=== PATIENT | female | born 1995 | race Caucasian/White ===

== ENCOUNTER 2017-02-01 15:12 | Emergency (ER) | payer BC, OTHER ==
[~2017-02-01] VITALS: Ht 167.6 cm; Wt 55.2 kg
[~2017-02-01 15:12] MED LIST: AMPH25CA PO; OXYC-643 PO
[2017-02-01 15:16] VITALS: TEMP 36.6; Ht 167.6 cm; Wt 55.2 kg
[2017-02-01] MEDS ORDERED: ACETAMINOPHEN 500 MG TAB PO STA (15:29)
[2017-02-01] MEDS ORDERED: IBUPROFEN 600 MG TAB PO STA (15:29)
--- NOTE | 2017-02-01 16:26 | DIAGNOSTIC IMAGING REPORT ---
CT HEAD WITHOUT CONTRAST (CT) CLINICAL HISTORY: Head injury HEADACHE, BLURRY VISION. COMPARISON STUDY: 04/20/2015 TECHNIQUE: Axial CT of the brain is performed from the vertex to the skull base. IV contrast was not administered for this examination. CT DOSE: 700.35 mGycm FINDINGS: No intra or extra-axial mass lesions are visualized. There is no CT evidence of acute cortical infarction. There is no evidence of midline shift. There is no acute hemorrhage. No calvarial fractures are visualized. There is no evidence of pathologic ventricular dilatation. There is no evidence of acute sinusitis IMPRESSION: Normal noncontrast head CT. Electronically signed by: Josh Stone M.D. 02/01/2017 4:24 PM Dictated Date/Time: 02/01/2017 4:22 PM
[2017-02-01 17:02] VITALS: BP 114/77; PULSE 75; O2SAT 99
--- NOTE | 2017-02-01 17:48 | EMERGENCY ROOM VISIT NOTE ---
ED Visit Note First contact with patient: 15:24 CHIEF COMPLAINT: Head injury HISTORY OF PRESENT ILLNESS: This 21-year-old female patient presented to the emergency department after receiving a head injury yesterday at work. The patient states that she was bending down when she struck her head off a shelf. There was no brief loss of consciousness. There has been no vomiting. The patient complains of frontal head pain. The patient denies other symptoms. She has taken nothing for pain today, but did take Advil with mild improvement of symptoms yesterday. The patient rates the pain as 7/10 and dull. The patient denies bowel or bladder dysfunction. The patient denies any other injuries. REVIEW OF SYSTEMS: A review of systems was performed with positives and pertinent negatives listed in the history of present illness. All other systems were reviewed and are negative. ALLERGIES: Tramadol MEDICATIONS: No chronic medications PMH: Otherwise healthy SOCIAL HISTORY: Employed and lives locally PHYSICAL EXAM: Vital Signs: Reviewed Nurse's notes, vital signs stable. GENERAL : White female, in no acute distress, well-developed, well-nourished. NEURO: The patient is alert, oriented to person place and time, and coherent. Normal mini mental status exam. Negative Romberg and pronator drift. Cerebellar function intact. HEAD: Normocephalic atraumatic. EYES: Pupils are equal round and reactive to light and accommodation. EOMs are full and optic discs and fundi are normal. There is no swelling or discoloration of the tissue surrounding the eyes. EARS: External auditory canals clear without blood. NOSE : Patent without tenderness. No septal hematoma. FACE: No facial bone tenderness. NECK: Supple. There is no cervical spine tenderness. The patient does not have tenderness with movement of the neck. CT HEAD WITHOUT CONTRAST (CT) CLINICAL HISTORY: Head injury HEADACHE, BLURRY VISION. COMPARISON STUDY: 04/20/2015 TECHNIQUE: Axial CT of the brain is performed from the vertex to the skull base. IV contrast was not administered for this examination. CT DOSE: 700.35 mGycm FINDINGS: No intra or extra-axial mass lesions are visualized. There is no CT evidence of acute cortical infarction. There is no evidence of midline shift. There is no acute hemorrhage. No calvarial fractures are visualized. There is no evidence of pathologic ventricular dilatation. There is no evidence of acute sinusitis IMPRESSION: Normal noncontrast head CT. ED COURSE: Physical exam and history were performed. Nursing notes and EMR were reviewed. The patient appears to have suffered a head injury yesterday with persistent pain. She does not appear toxic on examination. I discussed options of care with patient and elected to perform a CT scan. CT scan was performed and does not show evidence of acute process. The patient will be treated conservatively with [id number] analgesics. She is to follow with her primary care physician or [employer] for ongoing care and evaluation. She was invited back to the ER with any new, worsening, or concerning symptoms. Problem List Medical Problems: (1) ADHD (attention deficit hyperactivity disorder) Status: Chronic (2) Migraine Status: Chronic Current/Historical Medications Scheduled Amphetamine-Dextroamphetamine 20MG (Adderall 20MG), 20 MG PO BID Allergies Coded Allergies: Tramadol (Verified Allergy, Intermediate, VOMITING, 01/31/15) Vital Signs Date Time Temp Pulse Resp B/P Pulse Ox O2 Delivery O2 Flow Rate FiO2 02/01/17 17:02 75 17 114/77 99 Room Air 02/01/17 15:16 36.6 79 18 135/87 99 Room Air Medications Administered Medications (Trade) Dose Ordered Sig/Elizabeth Route Start Time Stop Time Status Last Admin Dose Admin Acetaminophen (Tylenol Tab) 1,000 mg NOW STAT PO 02/01/17 15:29 02/01/17 15:31 DC 02/01/17 15:29 1,000 MG Ibuprofen (Motrin Tab) 600 mg NOW STAT PO 02/01/17 15:29 02/01/17 15:31 DC 02/01/17 15:29 600 MG Departure Information Impression Primary Impression: Closed head injury Dispostion Home / Self-Care Condition GOOD Referrals Noah Marquez M.D. (PCP) Forms HOME CARE DOCUMENTATION FORM, IMPORTANT VISIT INFORMATION Patient Instructions My [facility] Additional Instructions You were seen and evaluated today on an emergency basis only. This is not a substitute for, or an effort to provide, complete comprehensive medical care. It is not possible to recognize and treat all injuries or illnesses in a single emergency department visit. For this reason it is recommended that you followup with your primary care physician next week for any ongoing or persistent symptoms. For baseline pain relief you may alternate ibuprofen and acetaminophen every 4 hours for pain control. Take 600 mg ibuprofen (Advil) and then 4 hours later take 1000 mg acetaminophen (Tylenol). Do not take more than 3000 mg acetaminophen in a single day. You are welcome to return to the emergency department anytime with new, worsening, or concerning symptoms.
[2017-02-01] MEDS ORDERED: AMPH20TA2 PO (19:52)
== END 2017-02-01 17:04 | disposition home or self-care (01) ==
LOC: C.EDB 15:15 → C.EDD 17:04
DX: S09.90XA Unspecified injury of head, initial encounter (principal); W22.8XXA Striking against or struck by other objects, initial encounter; Y92.89 Other specified places as the place of occurrence of the external cause; Y99.0 Civilian activity done for income or pay; F90.9 Attention-deficit hyperactivity disorder, unspecified type; G43.909 Migraine, unspecified, not intractable, without status migrainosus; Z79.899 Other long term (current) drug therapy